=== PATIENT | female | born 1980 | race Caucasian/White ===

== ENCOUNTER 2019-06-03 00:57 | Emergency (ER) | payer OTHER, SELFPAY ==
[2019-06-03 01:01] VITALS: BP 128/78; PULSE 84; RESP 16; TEMP 36.6; O2SAT 98; BMI 24.2
--- NOTE | 2019-06-03 01:06 | ED_ITS ---
Entered by Arti Terrell, acting as scribe for Levy Rodriguez MD HPI - Abdominal Pain General: Chief Complaint: Abdominal Pain Stated Complaint: abd pain Time Seen by Provider: 06/03/19 01:02 Source: patient Mode of arrival: ambulatory Limitations: no limitations History of Present Illness: HPI narrative: 38 yo f came to the er for abd pain. 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 Pt states that she was sleeping and she woke up with the pain. She states that she tried to go back to sleep but the pain kept getting worse. 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) Pain Consistency: constant Location: RLQ Severity: moderate Pain scale (0-10): 7 Quality: sharp Radiation: none Exacerbating factors: nothing Relieving factors: nothing Associated Symptoms: Reports no associated symptoms; Denies chills, diarrhea, dysuria, fever(s), nausea and vomiting Related Data: Date of Last Menstrual Period: 05/23/19 Hx Last Menstrual Period: 10 days ago Review of Systems General: Reports: other (negative unless marked) Const: Denies: fever, chills, body aches or change in appetite Eyes: Denies: blurry vision or eye discomfort ENMT: Denies: throat pain or dental pain Card: Denies: chest pain Resp: Denies: shortness of breath GI: Reports: abdominal pain; Denies: nausea, vomiting or diarrhea : Denies: painful urination Musc: Denies: neck pain or back pain Skin/Breast: Denies: rash Neuro: Denies: headache Psych: Denies: depression [place]/Lymph: Denies: easy bruising All/Imm: Denies: hives PFSH ED PFSH: Statuses (acute, chronic, etc) shown below reflect problem list status as previously entered and may not be historically accurate Social History Smoking and tobacco status: former smoker Female Reproductive History: Date of last menstrual period: 05/23/19 Physical Exam Const: COMMON NORMALS: no apparent distress, oriented x3 and healthy appearing HENMT: COMMON NORMALS: normocephalic and head/scalp atraumatic HEAD & SCALP: normocephalic and atraumatic Eye: COMMON NORMALS: PERRL and EOMs intact bilaterally PUPIL: Yes PERRL Neck/C-Spine: COMMON NORMALS: full ROM and supple Chest: COMMONS NORMALS: inspection of chest normal and palpation of chest normal Resp: COMMON NORMALS: normal respiratory effort, no retractions, no use of accessory muscles and clear to auscultation bilaterally AUSCULTATION: clear to auscultation bilaterally Cardio: COMMON NORMALS: regular rate, regular rhythm and no murmurs RATE: regular rate RHYTHM: regular rhythm GI: COMMON NORMALS: normal to inspection, nondistended, normoactive bowel sounds, soft to palpation and no masses PALPATION: Yes soft OTHER: rlq tenderness Extremity: COMMON NORMALS: normal to inspection and full ROM Neuro: COMMON NORMALS: oriented x3, moves all extremities and no focal motor deficits Psych: COMMON NORMALS: mental status grossly normal, thought process normal and cooperative THOUGHT PROCESS: normal thought process Skin: COMMON NORMALS: no rashes or lesions noted and no wounds GENERAL SKIN EXAM: no rashes or lesions noted Course Vital Signs: Vital signs: Vital Signs Temperature 97.8 F 06/03/19 01:01 Pulse Rate 84 06/03/19 01:01 Respiratory Rate 16 06/03/19 01:01 Blood Pressure 128/78 06/03/19 01:01 Pulse Oximetry 98 06/03/19 01:01 MDM - Abdominal Pain MDM Narrative: Medical decision making narrative: Patient presents with right lower abdominal pain. Patient CT scan here shows no findings in the right lower quadrant and a possible left ovarian cyst. Patient exam here is now benign. Patient's here and here is negative and patient's blood work is negative will patient is stable for discharge and return if worsening. Lab Data: Labs: Lab Results 06/03/19 06/03/19 06/03/19 Range/Units 01:18 01:18 01:27 WBC 7.2 (4.0-10.0) 10^3/ uL RBC 4.73 (4.1-5.3) 10^6/u L Hgb 12.5 (11.5-15.3) g/dL Hct 40.0 (37.0-47.0) % MCV 84.6 (81-99) fL MCH 26.4 L (28.0-34.0) pg MCHC 31.3 (30.0-36.0) g/dL RDW 13.2 (12.1-15.1) % Plt Count 316 (130-400) 10^3/c mm MPV 9.7 (7.4-10.4) fL Neut % (Auto) 55.6 % Lymph % (Auto) 28.4 % [place] % (Auto) 10.0 % Eos % (Auto) 5.1 % Baso % (Auto) 0.6 % Neut # (Auto) 4.0 (1.8-7.7) 10^3/u L Lymph # (Auto) 2.0 (0.8-4.8) 10^3/u L [place] # (Auto) 0.7 (0.2-0.9) 10^3/u L Eos # (Auto) 0.4 (0.0-0.8) 10^3/u L Baso # (Auto) 0.0 (0.0-0.1) 10^3/u L Nucleated RBC % (a uto) 0 % Nucleated RBCs # 0.0 /100WBC Sodium (136-145) mmol/L Potassium (3.5-5.1) mmol/L Chloride (98-107) mmol/L Carbon Dioxide (22-29) mmol/L Anion Gap (5-19) BUN (6-20) mg/dL Creatinine (0.5-0.9) mg/dL GFR Calculation (90-130) mL/min Glucose (65-115) mg/dL Calcium (8.5-10.5) mg/dL Total Bilirubin (0.15-1.2) mg/dL AST (0-32) U/L ALT (0-33) U/L Alkaline Phosphata se (35-105) IU/L Total Protein (6.6-8.7) g/dL Albumin (3.5-5.2) g/dL Globulin (1.3-4.6) g/dL Lipase (13-60) U/L HCG, Qual Negative (Negative) Urine Color Yellow (Yellow) Urine Appearance Hazy A (CLEAR) Urine pH 5 (5-7) Ur Specific Gravit y 1.025 (1.005-1.030) Urine Protein Neg (Negative) Urine Glucose (UA) Norm (Normal) Urine Ketones Negative (Negative) Urine Occult Blood Neg (Negative) Urine Nitrate Negative (Negative) Urine Bilirubin Neg (NEGATIVE) Urine Urobilinogen Norm (Negative) mg/dL Ur Leukocyte Kenia ase Negative (Negative) Urine RBC 0-4 H (0-2) /hpf Urine WBC None (0-5) /hpf Ur Squamous Epith Cells 5-10 H (0-5) Calcium Oxalate Cr ystal 0-4 H /hpf Urine Bacteria 1+ H (NONE) 06/03/19 Range/Units 01:27 WBC (4.0-10.0) 10^3/ uL RBC (4.1-5.3) 10^6/u L Hgb (11.5-15.3) g/dL Hct (37.0-47.0) % MCV (81-99) fL MCH (28.0-34.0) pg MCHC (30.0-36.0) g/dL RDW (12.1-15.1) % Plt Count (130-400) 10^3/c mm MPV (7.4-10.4) fL Neut % (Auto) % Lymph % (Auto) % [place] % (Auto) % Eos % (Auto) % Baso % (Auto) % Neut # (Auto) (1.8-7.7) 10^3/u L Lymph # (Auto) (0.8-4.8) 10^3/u L [place] # (Auto) (0.2-0.9) 10^3/u L Eos # (Auto) (0.0-0.8) 10^3/u L Baso # (Auto) (0.0-0.1) 10^3/u L Nucleated RBC % (a uto) % Nucleated RBCs # /100WBC Sodium 138 (136-145) mmol/L Potassium 3.5 (3.5-5.1) mmol/L Chloride 102 (98-107) mmol/L Carbon Dioxide 23 (22-29) mmol/L Anion Gap 16.5 (5-19) BUN 6 (6-20) mg/dL Creatinine 0.7 (0.5-0.9) mg/dL GFR Calculation 93.6 (90-130) mL/min Glucose 105 (65-115) mg/dL Calcium 10.0 (8.5-10.5) mg/dL Total Bilirubin 0.3 (0.15-1.2) mg/dL AST 17 (0-32) U/L ALT 16 (0-33) U/L Alkaline Phosphata se 59 (35-105) IU/L Total Protein 7.8 (6.6-8.7) g/dL Albumin 4.7 (3.5-5.2) g/dL Globulin 3.1 (1.3-4.6) g/dL Lipase 35 (13-60) U/L HCG, Qual (Negative) Urine Color (Yellow) Urine Appearance (CLEAR) Urine pH (5-7) Ur Specific Gravit y (1.005-1.030) Urine Protein (Negative) Urine Glucose (UA) (Normal) Urine Ketones (Negative) Urine Occult Blood (Negative) Urine Nitrate (Negative) Urine Bilirubin (NEGATIVE) Urine Urobilinogen (Negative) mg/dL Ur Leukocyte Kenia ase (Negative) Urine RBC (0-2) /hpf Urine WBC (0-5) /hpf Ur Squamous Epith Cells (0-5) Calcium Oxalate Cr ystal /hpf Urine Bacteria (NONE) Imaging Data ^: CT Abd/Pel: Radiologist's impression: Ordering Provider/Ordering MD: Levy Rodriguez MD Date of Service: 06/03/19 Procedure(s): CT abdomen pelvis w con* [id number] Accession Number(s): [id number] Report Number: [id number] PROCEDURE INFORMATION: Exam: CT Abdomen And Pelvis With Contrast Exam date and time: 06/03/2019 2:26 AM Age: 38 years old Clinical indication: Abdominal pain; Acute; Prior surgery; Surgery date: 6+ months; Surgery type: Appendectomy; Additional info: Abd pain TECHNIQUE: Imaging protocol: Computed tomography of the abdomen and pelvis with intravenous contrast. Total DLP: 642.59 mGy-cm Radiation optimization: All CT scans at this facility use at least one of these dose optimization techniques: automated exposure control; mA and/or kV adjustment per patient size (includes targeted exams where dose is matched to clinical indication); or iterative reconstruction. Contrast material: OMNI 300; Contrast volume: 95 ml; Contrast route: 20G; COMPARISON: No relevant prior studies available. FINDINGS: Visualized portions of the lung bases are clear. The liver, gallbladder, spleen, pancreas, adrenal glands, and left kidney are unremarkable. There is a 0.5 cm stone in the right kidney lower pole. The appendix is not identified, consistent with appendectomy. No evidence of bowel obstruction. No evidence of diverticulitis. No free intraperitoneal air or fluid is seen. The bladder and uterus are unremarkable. There is a 2.7 cm x 1.9 cm probable left ovarian cyst on series 2, image 64. The abdominal aorta is non-aneurysmal. The visualized bones are unremarkable. CT/CT abdomen pelvis w con* [id number] IMPRESSION: 1. Probable left ovarian cyst. Discharge Plan Discharge Patient Disposition: Home, Self-Care Clinical Impression: Abdominal pain Qualifiers: Abdominal location: right lower quadrant Qualified Code(s): R10.31 - Right lower quadrant pain Condition: Stable Prescriptions: New EC-Naprosyn 500 mg tablet,delayed release (DR/EC) 500 mg PO BID PRN (Reason: pain) Qty: 20 RF: 0 No Action [place] Thyroid 90 mg Tablet 90 mg PO DAILY RF: 0 Discharge Orders: Discharge Order (Routine); Ordered 06/03/19 Ordered By: Levy Rodriguez Referrals: Jacky Cervantes, DO [Family Provider] - 4-7 days Discharge Diet: Advance as tolerated Discharge Activity: Resume usual activity Patient Instructions: Abdominal Pain (ED) Coding Level of Care Code ED Manager Shell for Chg Fwd Exam Problem Focused The documentation recorded by the Xander galan Stephanie Lyn, accurately reflects the service I personally performed and the decisions made by Michael moffett Korby, MD Jun 03, 2019 00:57
[2019-06-03 01:35] LABS: Basophils % 0.6 %; Eosinophils # 0.4 10^3/uL (0.0-0.8); Eosinophils % 5.1 %; Hemoglobin 12.5 g/dL (11.5-15.3); Lymphocytes % 28.4 %; Mean Corpuscular HGB Conc 31.3 g/dL (30.0-36.0); Mean Corpuscular Hemoglobin 26.4 pg (28.0-34.0); Mean Corpuscular Volume 84.6 fL (81-99); Mean Platelet Volume 9.7 fL (7.4-10.4); Monocytes # 0.7 10^3/uL (0.2-0.9); Neutrophils % 55.6 %; Nucleated Red Blood Cells % 0 %; Platelet Count 316 10^3/cmm (130-400); Red Blood Count 4.73 10^6/uL (4.1-5.3); Red Cell Distribution Width 13.2 % (12.1-15.1); White Blood Count 7.2 10^3/uL (4.0-10.0)
[2019-06-03 01:38] LABS: Add Urine Microscopic? YES; Bilirubin Urine Neg (NEGATIVE); Blood Urine Neg (Negative); Glucose Urine UA Norm (Normal); Ketones Urine Negative (Negative); Leukocyte Esterase Urine Negative (Negative); Nitrate Urine Negative (Negative); Protein Urine Neg (Negative); Specific Gravity, Urine 1.025 (1.005-1.030); Urine Appearance Hazy (CLEAR); Urine Color Yellow (Yellow); Urobilinogen Urine Norm (Negative); pH Urine 5 (5-7)
[2019-06-03 01:39] LABS: HCG Qualitative Urine. Negative (Negative)
[2019-06-03 01:49] LABS: Alanine Aminotransferase 16 U/L (0-33); Albumin Level 4.7 g/dL (3.5-5.2); Alkaline Phosphatase 59 IU/L (35-105); Anion Gap 16.5 (5-19); Aspartate Amino Transferase 17 U/L (0-32); Blood Urea Nitrogen 6 mg/dL (6-20); Carbon Dioxide 23 mmol/L (22-29); Chloride 102 mmol/L (98-107); Globulin 3.1 g/dL (1.3-4.6); Glomerular Filtration Rate 93.6 mL/min (90-130); Glucose 105 mg/dL (65-115); Lipase 35 U/L (13-60); Potassium 3.5 mmol/L (3.5-5.1); Sodium 138 mmol/L (136-145); Total Bilirubin 0.3 mg/dL (0.15-1.2); Total Protein 7.8 g/dL (6.6-8.7)
--- NOTE | 2019-06-03 02:24 | CTR_ITS ---
PROCEDURE INFORMATION: Exam: CT Abdomen And Pelvis With Contrast Exam date and time: 06/03/2019 2:26 AM Age: 38 years old Clinical indication: Abdominal pain; Acute; Prior surgery; Surgery date: 6+ months; Surgery type: Appendectomy; Additional info: Abd pain TECHNIQUE: Imaging protocol: Computed tomography of the abdomen and pelvis with intravenous contrast. Total DLP: 642.59 mGy-cm Radiation optimization: All CT scans at this facility use at least one of these dose optimization techniques: automated exposure control; mA and/or kV adjustment per patient size (includes targeted exams where dose is matched to clinical indication); or iterative reconstruction. Contrast material: OMNI 300; Contrast volume: 95 ml; Contrast route: 20G; COMPARISON: No relevant prior studies available. FINDINGS: Visualized portions of the lung bases are clear. The liver, gallbladder, spleen, pancreas, adrenal glands, and left kidney are unremarkable. There is a 0.5 cm stone in the right kidney lower pole. The appendix is not identified, consistent with appendectomy. No evidence of bowel obstruction. No evidence of diverticulitis. No free intraperitoneal air or fluid is seen. The bladder and uterus are unremarkable. There is a 2.7 cm x 1.9 cm probable left ovarian cyst on series 2, image 64. The abdominal aorta is non-aneurysmal. The visualized bones are unremarkable. CT/CT abdomen pelvis w con* [id number] IMPRESSION: 1. Probable left ovarian cyst. Radiation Dose CTDIVOL = (mGy): DLP = 642.59 (mGy-cm)
[2019-06-03 02:57] LABS: RBC Urine 0-4 /hpf (0-2)
[2019-06-03 02:58] LABS: Add Urine Culture? No; Bacteria Urine 1+; Calcium Oxalate Crystals Urine 0-4 /hpf
[2019-06-03] MEDS: iohexol 300 mg/mL 100 mL Btl IV (02:59)
[2019-06-03 04:24] VITALS: BP 120/76; PULSE 74; RESP 14; O2SAT 99
== END 2019-06-03 04:25 | disposition home or self-care (01) ==
PROVIDERS: Emergency Provider Emergency Medicine; Family Provider Family Medicine
DX: R10.31 Right lower quadrant pain (principal); Z87.442 Personal history of urinary calculi; Z87.891 Personal history of nicotine dependence
CPT/HCPCS: 36415; 74177; 80053; 81001; 81025; 83690; 85025; 99282; 99283; Q9967

== ENCOUNTER 2021-01-03 11:44 | Outpatient (RCR) | payer OTHER, SELFPAY | END 2021-01-19 23:59 | disposition home or self-care (01) | LOC: SPT 11:44 | PROVIDERS: PCP Family Medicine; Referring Provider Family Medicine; Visit Provider Family Medicine | DX: M13.851 Other specified arthritis, right hip (principal); M13.852 Other specified arthritis, left hip | CPT/HCPCS: 97110; 97162 ==

== ENCOUNTER → 2022-06-08 09:17 | Outpatient (BNVA) | payer OTHER, SELFPAY | PROVIDERS: PCP Family Medicine; Visit Provider Family Medicine | DX: E06.3 Autoimmune thyroiditis (principal); L50.9 Urticaria, unspecified | CPT/HCPCS: 84439; 84443; 84481; 86003; 86008 ==

== ENCOUNTER → 2023-01-04 09:31 | Outpatient (BNVA) | payer OTHER, SELFPAY | PROVIDERS: PCP Family Medicine; Visit Provider Nurse Practitioner Family | DX: U07.1 COVID-19 (principal) | CPT/HCPCS: 87071 ==

== ENCOUNTER 2023-10-30 12:31 | Emergency (ER) | payer OTHER, SELFPAY ==
[2023-10-30 12:37] VITALS: BP 151/106; PULSE 125; RESP 18; TEMP 36.6; O2SAT 97
--- NOTE | 2023-10-30 13:08 | ED_ITS ---
HPI - Back Pain/Injury 2 General: Chief Complaint: Back Pain/Injury Stated Complaint: abd pain Time Seen by Provider: 10/30/23 13:07 History of Present Illness: 43-year-old female comes in today with r ight flank pain coming around to her lower abdomen starting today. Patient does have a history of kidney stones. Patient has had her appendix removed. Patient does have a history of thyroid disease. Patient appears in moderate pain. Patient appears nontoxic. Review of Systems 2 General: Reports: 10 or more systems reviewed and unremarkable except in HPI and below : Reports: flank pain PFSH ED 2 PFSH: Social History Smoking and tobacco/nicotine status: current every day tobacco/nicotine user Physical Exam 2 Const: COMMON NORMALS: alert HENMT: COMMON NORMALS: normocephalic HEAD & SCALP: normocephalic Neck/C-Spine: COMMON NORMALS: full ROM Chest: COMMONS NORMALS: normal inspection of the chest Resp: COMMON NORMALS: normal respiratory effort and clear to auscultation bilaterally AUSCULTATION: clear to auscultation bilaterally Cardio: COMMON NORMALS: regular rate RATE: regular rate GI: COMMON NORMALS: Soft to palpation PALPATION: Yes Soft to palpation and Yes Tenderness to palpation present (GI) Details: RUQ : BLADDER/KIDNEY EXAM: Yes CVA tenderness on the right Back/Pelvis: GENERAL BACK: Yes CVA tenderness Extremity: COMMON NORMALS: full ROM Neuro: SENSORIUM/ORIENTATION: Yes alert Skin: COMMON NORMALS: turgor normal GENERAL SKIN EXAM: turgor normal Course 2 Vital Signs: Vital signs: Vital Signs Temperature 97.9 F 10/30/23 12:37 Pulse Rate 93 10/30/23 14:39 Respiratory Rate 16 10/30/23 14:39 Blood Pressure 142/82 10/30/23 14:39 Pulse Oximetry 94 10/30/23 14:39 Oxygen Delivery Me thod Room Air 10/30/23 13:09 MDM - Back Pain/Injury Medical Decision Making 43-year-old female comes in today for complaints of right flank pain radiating to her right lower abdomen. On exam patient has some right CVA tenderness. Patient also has some tenderness on palpation of right lower quadrant of abdomen. Bowel sounds are present. Skin is warm and dry. Vital signs are normal except for some mild elevation in pulse. Differential diagnosis includes gallbladder disease, constipation, renal calculi, UTI. Patient has a 6 mm ureteral stone. Moderate hydronephrosis is noted. CBC and CMP were unremarkable. Urinalysis had a large amount of white blood cells and skin cells. Reviewed exam with patient with recommendation for treatment and follow- up. Patient reported understanding. Labs 10/30/23 13:23 10/30/23 13:23 Radiology Impressions Abdomen/Pelvis CT 10/30/23 13:15 IMPRESSION: 1. Moderate right-sided hydronephrosis secondary to an obstructive 6 mm proximal-mid ureteral stone. Laboratory Results WBC 7.14 10^3/uL (3.29-11.43) 10/30/23 13:23 RBC 4.86 10^6/uL (3.85-5.65) 10/30/23 13:23 Hgb 13.00 g/dL (11.27-16.99) 10/30/23 13:23 Hct 41.1 % (36-47) 10/30/23 13:23 MCV 84.6 fl (85-98) L 10/30/23 13:23 MCH 26.7 pg (27-33) L 10/30/23 13:23 MCHC 31.6 g/dL (30-55) 10/30/23 13:23 RDW 14.0 % (12.1-15.1) 10/30/23 13:23 Plt Count 352 10^3/cmm (157-399) 10/30/23 13:23 MPV 10.0 fL (7.4-10.4) 10/30/23 13:23 Neut % (Auto) 70.3 % 10/30/23 13:23 Lymph % (Auto) 19.9 % 10/30/23 13:23 [place] % (Auto) 8.0 % 10/30/23 13:23 Eos % (Auto) 1.1 % 10/30/23 13:23 Baso % (Auto) 0.4 % 10/30/23 13:23 Neut # (Auto) 5.02 10^3/uL (1.8-7.7) 10/30/23 13:23 Lymph # (Auto) 1.4 10^3/uL (0.8-4.8) 10/30/23 13:23 [place] # (Auto) 0.6 10^3/uL (0.2-0.9) 10/30/23 13:23 Eos # (Auto) 0.1 10^3/uL (0.0-0.8) 10/30/23 13:23 Baso # (Auto) 0.0 10^3/uL (0.0-0.1) 10/30/23 13:23 Nucleated RBC % (auto) 0 % 10/30/23 13:23 Nucleated RBCs # 0.0 /100WBC 10/30/23 13:23 Sodium 137 mmol/L (136-145) 10/30/23 13:23 Potassium 3.9 mmol/L (3.5-5.1) 10/30/23 13:23 Chloride 101 mmol/L (98-107) 10/30/23 13:23 Carbon Dioxide 21 mmol/L (22-29) L 10/30/23 13:23 Anion Gap 18.9 (5-19) 10/30/23 13:23 BUN 7 mg/dL (6-20) 10/30/23 13:23 Creatinine 0.6 mg/dL (0.5-0.9) 10/30/23 13:23 GFR Calculation 109.1 mL/min (90-130) 10/30/23 13:23 Glucose 104 mg/dL (65-115) 10/30/23 13:23 Calculated Osmolality 282 mOsm/kg (285-295) L 10/30/23 13:23 Calcium 9.4 mg/dL (8.5-10.5) 10/30/23 13:23 Total Bilirubin 0.4 mg/dL (0.15-1.2) 10/30/23 13:23 AST 14 U/L (0-32) 10/30/23 13:23 ALT 11 U/L (0-33) 10/30/23 13:23 Alkaline Phosphatase 55 U/L (35-105) 10/30/23 13:23 C-Reactive Protein 3.0 mg/L (0.0-4.9) 10/30/23 13:23 Total Protein 7.9 g/dL (6.6-8.7) 10/30/23 13:23 Albumin 4.6 g/dL (3.5-5.2) 10/30/23 13:23 Globulin 3.3 g/dL (1.3-4.6) 10/30/23 13:23 HCG, Qual Negative (Negative) 10/30/23 13:23 Urine Color Yellow (Yellow) 10/30/23 13:00 Urine Appearance Cloudy (CLEAR) A 10/30/23 13:00 Urine pH 6 (5-7) 10/30/23 13:00 Ur Specific [place] 1.010 (1.005-1.030) 10/30/23 13:00 Urine Protein Trace (Negative) 10/30/23 13:00 Urine Glucose (UA) Norm (Normal) 10/30/23 13:00 Urine Ketones Negative (Negative) 10/30/23 13:00 Urine Blood 3+ (Negative) H 10/30/23 13:00 Urine Nitrate Negative (Negative) 10/30/23 13:00 Urine Bilirubin Neg (Negative) 10/30/23 13:00 Urine Urobilinogen Norm mg/dL (Negative) 10/30/23 13:00 Ur Leukocyte Esterase 2+ (Negative) H 10/30/23 13:00 Urine RBC 80-100 /hpf (0-2) H 10/30/23 13:00 Urine WBC 15-25 /hpf (0-5) H 10/30/23 13:00 Ur Squamous Epith Cells 10-15 /hpf (0-5) H 10/30/23 13:00 Amorphous Sediment Not Reportable 10/30/23 13:00 Urine Bacteria 1+ /hpf (NONE) H 10/30/23 13:00 All radiology interpretation(s) finalized by discharge Discharge Plan Discharge Patient Disposition: Home Clinical Impression: Ureteral calculus, right Condition: Stable Prescriptions: New tamsulosin 0.4 mg capsule 0.4 mg PO DAILY Qty: 10 0RF hydrocodone-acetaminophen 5-325 mg tablet 1 tab PO Q6H PRN (Reason: pain) Qty: 14 0RF ondansetron 4 mg tablet,disintegrating 4 mg PO Q8H PRN (Reason: nausea and vomiting) Qty: 10 0RF No Action thyroid (pork) [[place] Thyroid] 90 mg Tablet 90 mg PO DAILY Discharge Orders: Discharge ED (Routine); Ordered 10/30/23 Ordered By: Emery Tarango Referrals: Deangelo Bowen, DO [Primary Care Provider] - Discharge Diet: Usual diet Discharge Activity: Increase activity as tolerated Patient Instructions: Renal Colic (ED) Activity Restrictions/Additional Instructions: Follow-up with urologist for further evaluation and treatment. Return to ER for high fever greater than 100.4, inability to hold fluids down, or new concerns. Coding Level of Care Code ED Can Runner for Fadumo Iverson
[2023-10-30 13:09] VITALS: BP 128/78; PULSE 105; O2SAT 97
--- NOTE | 2023-10-30 13:15 | CTR_ITS ---
PROCEDURE INFORMATION: Exam: CT Abdomen And Pelvis Without Contrast Exam date and time: 10/30/2023 1:58 PM Age: 43 years old Clinical indication: Abdominal pain; Flank; Right; Prior surgery; Surgery date: 6+ months; Surgery type: Appendectomy; Additional info: Right flank pain TECHNIQUE: Imaging protocol: Computed tomography of the abdomen and pelvis without contrast. Radiation optimization: All CT scans at this facility use at least one of these dose optimization techniques: automated exposure control; mA and/or kV adjustment per patient size (includes targeted exams where dose is matched to clinical indication); or iterative reconstruction. COMPARISON: CT abdomen pelvis w con* [id number] 06/03/2019 2:59 AM RADIATION DOSE METRICS: Total DLP (mGy-cm): 448.13 FINDINGS: Lungs: Subsegmental bibasilar atelectasis. The visualized lung bases are otherwise clear. Diaphragm: No evidence of diaphragmatic defect. Liver: No evidence of focal hepatic lesion within limitation of a noncontrast exam. Gallbladder and biliary ducts: Suspected biliary sludge and/or cholelithiasis. No inflammatory changes to suggest acute cholecystitis. No intrahepatic or extrahepatic biliary dilatation. Pancreas: Grossly unremarkable. Spleen: Grossly unremarkable. Adrenal glands: Grossly unremarkable. Kidneys and ureters: Moderate right-sided hydronephrosis secondary to an obstructive 6 mm proximal-mid ureteral stone at the level of the pelvic brim. Additional nonobstructive left-sided renal stones measuring up to 3 mm. No hydronephrosis on the left. Stomach and bowel: No evidence of bowel obstruction or perienteric inflammatory changes. Appendix: The appendix is not well visualized, however there are no findings to suggest appendicitis. Intraperitoneal space: No evidence of free air or fluid collection. Vasculature: No evidence of aneurysmal dilitation of abdominal aorta. Lymph nodes: No evidence of adenopathy. Urinary bladder: Grossly unremarkable. Reproductive: Grossly unremarkable. Bones/joints: No evidence of acute fracture or aggresive osseous lesion. Soft tissues: No evidence of fluid collection or hematoma in the superficial soft tissues. CT/CT kidney stone [id number] IMPRESSION: 1. Moderate right-sided hydronephrosis secondary to an obstructive 6 mm proximal-mid ureteral stone.
[2023-10-30 13:24] LABS: Bilirubin Urine Neg (Negative); Blood Urine 3+ (Negative); Glucose Urine UA Norm (Normal); Ketones Urine Negative (Negative); Nitrate Urine Negative (Negative); Protein Urine Trace (Negative); Urine Appearance Cloudy (CLEAR); Urine Color Yellow (Yellow); Urobilinogen Urine Norm (Negative); pH Urine 6 (5-7)
[2023-10-30 13:25] LABS: Leukocyte Esterase Urine 2+ (Negative)
[2023-10-30 13:35] LABS: Basophils % 0.4 %; Eosinophils # 0.1 10^3/uL (0.0-0.8); Eosinophils % 1.1 %; Hematocrit 41.1 % (36-47); Lymphocytes # 1.4 10^3/uL (0.8-4.8); Lymphocytes % 19.9 %; Mean Corpuscular HGB Conc 31.6 g/dL (30-55); Mean Corpuscular Hemoglobin 26.7 pg (27-33); Mean Corpuscular Volume 84.6 fl (85-98); Monocytes # 0.6 10^3/uL (0.2-0.9); Neutrophils # 5.02 10^3/uL (1.8-7.7); Neutrophils % 70.3 %; Nucleated Red Blood Cells % 0 %; Platelet Count 352 10^3/cmm (157-399); Red Blood Count 4.86 10^6/uL (3.85-5.65); White Blood Count 7.14 10^3/uL (3.29-11.43)
[2023-10-30 13:40] LABS: Add Urine Culture? Yes; Bacteria Urine 1+ /hpf; RBC Urine 80-100 /hpf (0-2); WBC Urine 15-25 /hpf (0-5)
[2023-10-30 13:50] LABS: Alanine Aminotransferase 11 U/L (0-33); Albumin Level 4.6 g/dL (3.5-5.2); Alkaline Phosphatase 55 U/L (35-105); Anion Gap 18.9 (5-19); Aspartate Amino Transferase 14 U/L (0-32); Blood Urea Nitrogen 7 mg/dL (6-20); Calcium 9.4 mg/dL (8.5-10.5); Carbon Dioxide 21 mmol/L (22-29); Chloride 101 mmol/L (98-107); Creatinine Clr Calc Pharmacy 121.5809; Globulin 3.3 g/dL (1.3-4.6); Glomerular Filtration Rate 109.1 mL/min (90-130); Glucose 104 mg/dL (65-115); Osmolality Calculated 282 mOsm/kg (285-295); Potassium 3.9 mmol/L (3.5-5.1); Sodium 137 mmol/L (136-145); Total Bilirubin 0.4 mg/dL (0.15-1.2); Total Protein 7.9 g/dL (6.6-8.7)
[2023-10-30 13:52] LABS: HCG, Serum Qual Negative (Negative)
[2023-10-30 14:39] VITALS: BP 142/82; PULSE 93; RESP 16; O2SAT 94
--- NOTE | 2023-10-31 22:34 | DCPLANNER ---
Urology referral sent to [facility] urology-
== END 2023-10-30 14:42 | disposition home or self-care (01) ==
PROVIDERS: Emergency Medicine; Emergency Provider Nurse Practitioner Family; PCP Family Medicine
DX: N13.2 Hydronephrosis with renal and ureteral calculous obstruction (principal); Z87.442 Personal history of urinary calculi
CPT/HCPCS: 36415; 74176; 80053; 81001; 84703; 85025; 86140; 87086; 99284

== ENCOUNTER 2024-12-02 15:29 | Outpatient (RCR) | payer OTHER, SELFPAY | END 2024-12-20 23:59 | disposition home or self-care (01) | LOC: SPT 15:29 | PROVIDERS: Visit Provider Family Medicine | DX: M25.551 Pain in right hip (principal) | CPT/HCPCS: 97110; 97161 ==